=== PATIENT | female | born 1975 | race Caucasian/White ===

== ENCOUNTER 2016-11-05 16:09 | Emergency (ER) | payer MEDICAID | END 2016-11-05 17:34 | disposition home or self-care (01) | LOC: D.ER 16:09 | DX: L02.416 Cutaneous abscess of left lower limb (principal); L02.415 Cutaneous abscess of right lower limb; L02.414 Cutaneous abscess of left upper limb; L02.11 Cutaneous abscess of neck; J45.909 Unspecified asthma, uncomplicated; B19.20 Unspecified viral hepatitis C without hepatic coma; B00.9 Herpesviral infection, unspecified ==

== ENCOUNTER 2017-10-16 11:16 | Emergency (ER) | payer MEDICAID ==
[~2017-10-16] VITALS: Ht 175.3 cm; Wt 115.5 kg
[2017-10-16 11:19] VITALS: Ht 175.3 cm; Wt 115.5 kg
[2017-10-16] MEDS ORDERED: BACTRIM 400-801 TAB PO (11:20)
[2017-10-16] MEDS ORDERED: MINIPRESS 5 MG C5 MG PO (11:20)
[2017-10-16] MEDS ORDERED: LASIX40 MG PO (11:20)
[2017-10-16] MEDS ORDERED: K-DUR20 MEQ PO (11:20)
[2017-10-16] MEDS ORDERED: CLONAZEPAM2 MG/TAB PO (11:20)
[2017-10-16] MEDS ORDERED: OMEPRAZOLE20 M1 PO (11:21)
[2017-10-16 12:15] LABS: BASOPHILS 0.1 % (0-2); EOSINOPHILS 2.5 % (0-7); HEMATOCRIT 36.2 % (36.0-48.0); HEMOGLOBIN 12.1 g/dL (12-16); IMMATURE GRANULOCYTES 0.2 % (0-5); LYMPHOCYTES 27.5 % (15-50); MCH 27.4 pg (26.0-34.0); MCHC 33.4 g/dL (31.0-37.0); MCV 81.9 fL (80.0-100.0); MEAN PLATELET VOLUME 8.8 fL (7.4-10.4); MONOCYTES 7.1 % (2-11); NEUTROPHILS 62.6 % (40-80); PLATELET COUNT 163 10x3/uL (130-400); RBC 4.42 10x6/uL (4.00-5.40); RDW 13.2 % (11.5-14.5)
[2017-10-16 12:32] LABS: ALBUMIN 3.3 g/dL (3.4-5.0); ALKALINE PHOSPHATASE 132 U/L (46-116); ALT (SGPT) 65 U/L (10-68); BILIRUBIN - TOTAL 0.27 mg/dL (0.2-1.3); CALC OSMOLALITY 269 mosm/kg (275-300); CALCIUM 8.3 mg/dL (8.5-10.1); CARBON DIOXIDE 31.4 mmol/L (21.0-32.0); CHLORIDE - SERUM 102 mmol/L (98-107); GLUCOSE 104 mg/dL (74-106); POTASSIUM - SERUM 4.3 mmol/L (3.5-5.1); PROTEIN - SERUM 7.3 g/dL (6.4-8.2); SODIUM 136 mmol/L (136-145); UREA NITROGEN 6 mg/dL (7-18); eGFR NON AFRICAN AMERICAN 65 mL/min (90-120)
[2017-10-16 12:34] LABS: TROPONIN-I < 0.017 ng/mL (0.000-0.060)
[2017-10-16] MEDS ORDERED: VENTOLIN HFA18 GM INH (15:20)
[2017-10-16] MEDS ORDERED: ZITHROMAX500 MG PO (15:20)
[2017-10-16] MEDS ORDERED: AMOXICILLIN875 MG PO (15:20)
[2017-10-16] MEDS ORDERED: FLOVENT HFA 11012 GM INH (15:20)
[2017-10-16 15:30] VITALS: BP 147/84
== END 2017-10-16 15:35 | disposition home or self-care (01) ==
LOC: D.ER 11:16
PROVIDERS: Family Medicine
DX: J45.901 Unspecified asthma with (acute) exacerbation (principal); J18.9 Pneumonia, unspecified organism; I50.9 Heart failure, unspecified; J44.9 Chronic obstructive pulmonary disease, unspecified; F17.200 Nicotine dependence, unspecified, uncomplicated

== ENCOUNTER 2018-03-02 10:42 | Inpatient (IN) | payer MEDICAID ==
[~2018-03-02] VITALS: Ht 175.3 cm; Wt 116.1 kg
[~2018-03-02 10:42] MED LIST: AMOXICILLIN875 MG PO; BACTRIM 400-801 TAB PO; CLONAZEPAM2 MG/TAB PO; FLOVENT HFA 11012 GM INH; K-DUR20 MEQ PO; LASIX40 MG PO; MINIPRESS 5 MG C5 MG PO; OMEPRAZOLE20 M1 PO; VENTOLIN HFA18 GM INH; ZITHROMAX500 MG PO
[2018-03-02 11:32] LABS: BASOPHILS 0.2 % (0-2); EOSINOPHILS 2.3 % (0-7); HEMATOCRIT 38.5 % (36.0-48.0); HEMOGLOBIN 12.2 g/dL (12-16); IMMATURE GRANULOCYTES 0.3 % (0-5); MCH 24.3 pg (26.0-34.0); MCHC 31.7 g/dL (31.0-37.0); MCV 76.5 fL (80.0-100.0); MEAN PLATELET VOLUME 9.5 fL (7.4-10.4); MONOCYTES 6.1 % (2-11); NEUTROPHILS 79.1 % (40-80); RBC 5.03 10x6/uL (4.00-5.40); WBC 9.1 10x3/uL (4.8-10.8)
[2018-03-02 11:37] LABS: APTT 27.4 SECONDS (22.8-39.4); INR 1.03 (0.85-1.17)
[2018-03-02 11:43] LABS: ALBUMIN 3.2 g/dL (3.4-5.0); ALKALINE PHOSPHATASE 144 U/L (46-116); ALT (SGPT) 30 U/L (10-68); BILIRUBIN - TOTAL 0.34 mg/dL (0.2-1.3); CALC OSMOLALITY 267 mosm/kg (275-300); CALCIUM 8.4 mg/dL (8.5-10.1); CARBON DIOXIDE 26.9 mmol/L (21.0-32.0); CHLORIDE - SERUM 97 mmol/L (98-107); CREATININE - SERUM 1.1 mg/dL (0.6-1.3); GLUCOSE 133 mg/dL (74-106); SODIUM 134 mmol/L (136-145); UREA NITROGEN 7 mg/dL (7-18); eGFR NON AFRICAN AMERICAN 58 mL/min (90-120)
[2018-03-02 11:50] LABS: PLATELET COUNT 192 10x3/uL (130-400); PLATELET ESTIMATE NORMAL; PLATELET MORPHOLOGY NORMAL PLT MORPH
[2018-03-02 11:54] LABS: CKMB 0.8 U/L (0.0-3.6); CREATINE KINASE 346 UL (21-215); PRO BNP 128 pg/mL (0-125)
[2018-03-02 11:55] LABS: TROPONIN-I < 0.017 ng/mL (0.000-0.060)
[2018-03-02 12:27] VITALS: BP 158/87
[2018-03-02] MEDS ORDERED: MEDROL DOSE PACK4 MG PO (14:13)
[2018-03-02] MEDS ORDERED: ZPAK PO (14:13)
[2018-03-02] MEDS ORDERED: ALBUTEROL SULF8.5 GM INH (14:13)
--- NOTE | 2018-03-02 18:07 | NUR ---
PT RECIVIED FROM ER. NO SIGNS OF DISTRESS. IV TO RIGHT CHEST PATENT NO REDNESS OR TENDERNESS. ON 2L NC. ASKING ABOUT HOME MEDICATIONS TO HELP SLEEP TONIGHT. TOLD NOT TO TAKE HER HOME MEDICATIONS WOULD SPEAK WITH THE DR ABOUT THEM. DENIES ANY OTHER NEED AT THIS TIME. CALL LIGHT IN REACH. BED LOW POSIITON. NO FAMILY AT BEDSIDE.
[2018-03-02 18:42] VITALS: BP 171/95; BMI 37.9
[2018-03-02 20:35] VITALS: BP 145/79
--- NOTE | 2018-03-02 22:58 | NUR ---
AWAKE,ALERT.REQUESTING HOME KLONOPIN AND MINIPRESS.INFORMED PATIENT MINIPRESS HAD BEEN ORDERED. CALL PLACED TO [facility]. ORDER TO START HOME MED KLONOPIN OBTAINED. IV INFUSING TO RIGHT CHEST WITHOUT REDNESS OR EDEMA NOTED. O2 @ 2L PER NC ON. NO DISTRESS NOTED. CL IN REACH
[2018-03-03 00:46] VITALS: BP 139/67
[2018-03-03 04:57] VITALS: BP 114/66
--- NOTE | 2018-03-03 05:02 | NUR ---
EYES CLOSED RESPIRATIONS WITH EASE AND UNLABORED. SR UP X2 CALL LIGHT WITHIN REACH DENIES NEEDS.
[2018-03-03 06:21] LABS: BASOPHILS 0.1 % (0-2); EOSINOPHILS 0 % (0-7); HEMATOCRIT 38.4 % (36.0-48.0); HEMOGLOBIN 12.2 g/dL (12-16); IMMATURE GRANULOCYTES 0.6 % (0-5); LYMPHOCYTES 8.8 % (15-50); MCH 24.1 pg (26.0-34.0); MCHC 31.8 g/dL (31.0-37.0); MCV 75.9 fL (80.0-100.0); MEAN PLATELET VOLUME 9.1 fL (7.4-10.4); MONOCYTES 1.4 % (2-11); NEUTROPHILS 89.1 % (40-80); RBC 5.06 10x6/uL (4.00-5.40); RDW 15.3 % (11.5-14.5); WBC 8.7 10x3/uL (4.8-10.8)
[2018-03-03 06:42] LABS: PLATELET COUNT 236 10x3/uL (130-400)
[2018-03-03 07:00] LABS: ALBUMIN 3.3 g/dL (3.4-5.0); ANION GAP 15.3 mmol/L (8-16); BILIRUBIN - TOTAL 0.28 mg/dL (0.2-1.3); CALCIUM 8.6 mg/dL (8.5-10.1); CARBON DIOXIDE 26.4 mmol/L (21.0-32.0); CREATININE - SERUM 1.1 mg/dL (0.6-1.3); POTASSIUM - SERUM 4.7 mmol/L (3.5-5.1)
[2018-03-03 08:51] VITALS: BP 116/68
--- NOTE | 2018-03-03 12:18 | NUR ---
PT RESTING IN BED WITH EYES CLOSED. OPENS EYES SPONTANEOUSLY. NO ACUTE DISTRESS NOTED AT THIS TIME. CENTRAL LINE INTACT TO RIGHT CHEST NO REDNESS OR EDEMA NOTED. 02 @ 3L NC IN PLACE. DENIES FURTHER NEEDS AT THIS TIME. CL WITHIN REACH. CONTINUE WITH POC.
--- NOTE | 2018-03-03 12:54 | NUR ---
PT RESTING IN BED. NO SIGNS OF DISTRESS. HAS RIGHT CHEST CENTRAL LINE PATENT NO REDNESS OR TENDERNESS. ON 4.5L NC. BP DROP 98/58. DENIES ANY NEW SYMPTOMS AND IN NO SIGNS OF DISTRESS. DENIES ANY OTHER NEED AT THIS TIME. CALL LIGHT IN REACH. BED LOW POSITION. NO FAMILY AT BEDSIDE AT THIS TIME.
[2018-03-03 13:03] VITALS: BP 98/57
[2018-03-03 14:48] VITALS: Ht 175.3 cm; Wt 116.1 kg
[2018-03-03 16:30] VITALS: BP 92/47
--- NOTE | 2018-03-03 19:00 | NUR ---
REPORT RECEIVED AND CARE OF PT ASSUMED. PT LYING ON LEFT SIDE WITH EYES CLOSED. RIGHT CVL PATENT WITH NS INFUSING AT 75 ML / HR. WILL MONITOR FOR NEEDS.
[2018-03-03 20:31] VITALS: BP 108/55
--- NOTE | 2018-03-03 20:55 | NUR ---
HS MEDICATIONS GIVEN. HELD MINIPRESS BP 108/55 AT THIS ASSESSMENT. WILL RE-EVAL AT NEXT BP CHECK AT MIDNIGHT.
--- NOTE | 2018-03-03 21:00 | NUR ---
GAVE HS SNACK OF VANILLA ICE CREAM X2. WILL CONTINUE TO MONITOR FOR NEEDS.
[2018-03-04 00:54] VITALS: BP 115/67
[2018-03-04 04:41] LABS: BASOPHILS 0 % (0-2); EOSINOPHILS 0 % (0-7); HEMATOCRIT 34.5 % (36.0-48.0); HEMOGLOBIN 10.6 g/dL (12-16); IMMATURE GRANULOCYTES 0.5 % (0-5); LYMPHOCYTES 7.5 % (15-50); MCH 23.8 pg (26.0-34.0); MCHC 30.7 g/dL (31.0-37.0); MCV 77.4 fL (80.0-100.0); MEAN PLATELET VOLUME 8.8 fL (7.4-10.4); MONOCYTES 4.3 % (2-11); NEUTROPHILS 87.7 % (40-80); PLATELET COUNT 231 10x3/uL (130-400); RBC 4.46 10x6/uL (4.00-5.40); RDW 15.5 % (11.5-14.5)
[2018-03-04 04:51] LABS: WBC 17.5 10x3/uL (4.8-10.8)
[2018-03-04 04:56] LABS: ALBUMIN 2.8 g/dL (3.4-5.0); ANION GAP 9.5 mmol/L (8-16); BILIRUBIN - TOTAL 0.23 mg/dL (0.2-1.3); CALCIUM 8.1 mg/dL (8.5-10.1); CARBON DIOXIDE 30.2 mmol/L (21.0-32.0); CREATININE - SERUM 1.2 mg/dL (0.6-1.3); POTASSIUM - SERUM 4.7 mmol/L (3.5-5.1); PROTEIN - SERUM 7.2 g/dL (6.4-8.2)
[2018-03-04 05:04] VITALS: BP 117/65
--- NOTE | 2018-03-04 12:02 | MORECARE ---
CASE MANAGEMENT DISCHARGE SUMMARY PATIENT: OUMOU SHAW UNIT: [id number] ADM DATE: 03/02/18 AGE: 42 : 77 SEX: F ROOM/BED: D.2223 AUTHOR: CHINYERE MUSE PHYSICIAN: REFERRING PHYSICIAN: ANTIONETTE RODRIGUEZ DO DATE OF SERVICE: 03/04/18 Discharge Plan Patient Name: OUMOU SHAW [facility] [facility] 1975 Planned Disposition: Home Anticipated Discharge Date: Discharge Date: Expected LOS: Initial Reviewer: [email or web address] Initial Review Date: 03/04/2018 Generated: 03/04/18 1:02 pm DCPIA - Discharge Planning Initial Assessment Updated by [email or web address]: Teena Saldaña on 03/04/18 11:58 am * Is the patient Alert and Oriented? Yes * How many steps to enter\exit or inside your home? 0/0 * PCP Hilda Diaz in [place] * Pharmacy [facility] on [facility] * Preadmission Environment Home Alone * ADLs Independent * Equipment None * List name and contact numbers for known caregivers / representatives who currently or will assist patient after discharge: Torie carty - [phone] * Verbal permission to speak to the caregivers and representatives has been obtained from the patient. Yes * Community resources currently utilized None * Additional services required to return to the preadmission environment? No * Can the patient safely return to the preadmission environment? Yes * Has this patient been hospitalized within the prior 30 days at any hospital? No Patient Name: OUMOU SHAW Page 69960 at 1202 All edits/amendments must be made on the electronic document DICTATION DATE: 03/04/18 1202 ADVERTISING ASSISTANT MANAGER: CHRISTI 03/04/18 1202 RPT#: [id number] DC DATE: STATUS: ADM IN [facility] [address] [place] [address] END OF REPORT
--- NOTE | 2018-03-04 12:19 | MORECARE ---
CASE MANAGEMENT DISCHARGE SUMMARY PATIENT: OUMOU SHAW UNIT: [id number] ADM DATE: 03/02/18 AGE: 42 : 77 SEX: F ROOM/BED: D.2223 AUTHOR: MICHADOC PHYSICIAN: REFERRING PHYSICIAN: ANTIONETTE RODRIGUEZ DO DATE OF SERVICE: 03/04/18 Discharge Plan Patient Name: OUMOU SHAW Facility: [facility]:[place] : 1975 Planned Disposition: Home Anticipated Discharge Date: Discharge Date: Expected LOS: Initial Reviewer: [email or web address] Initial Review Date: 03/04/2018 Generated: 03/04/18 1:19 pm Comments DCP- Discharge Planning Updated by [email or web address]: Teena Saldaña on 03/04/18 11:[address] Patient Name: OUMOU SHAW Admission Status: ER Accout number: [id number] Admission Date: 03-02-2018 : 1975 Admission Diagnosis: Attending: ANTIONETTE RODRIGUEZ Current LOS: 2 Anticipated DC Date: Planned Disposition: Home Primary Insurance: MEDICAID [place] Discharge Planning Comments: CM met with patient to discuss discharge planning/needs, she is alone in the room. She states she lives alone. She is independent with all ADL's. States she does not drive, she takes a taxi or the bus for transportation. States she has 2 sisters that are active in her life. States she will take a taxi home when discharged and has money for the taxi and keys to get into her home. Declines need for DME or home health. She is not wearing any oxygen. CM will continue to follow and assist with discharge planning/needs. Nutrition Worker: Teena Saldaña DCPIA - Discharge Planning Initial Assessment Updated by [email or web address]: Teena Saldaña on 03/04/18 11:58 am * Is the patient Alert and Oriented? Yes * How many steps to enter\exit or inside your home? 0/0 * PCP Hilda Diaz in [place] * Pharmacy [facility] * Preadmission Environment Home Alone * ADLs Independent * Equipment None * List name and contact numbers for known caregivers / representatives who currently or will assist patient after discharge: Torie carty [phone] * Verbal permission to speak to the caregivers and representatives has been obtained from the patient. Yes * Community resources currently utilized None * Additional services required to return to the preadmission environment? No * Can the patient safely return to the preadmission environment? Yes * Has this patient been hospitalized within the prior 30 days at any hospital? No Last DP export: 03/04/18 11:02 a Patient Name: OUMOU SHAW Page 25199 at 1219 All edits/amendments must be made on the electronic document DICTATION DATE: 03/04/181217 MICROELECTRONICS ASSEMBLER: CHRISTI 03/04/181217 RPT#: [id number] DC DATE: STATUS: ADM IN [facility] [address] [place] [address] END OF REPORT
[2018-03-04] MEDS ORDERED: COREG 3.1253.125 MG PO (13:53)
[2018-03-04] MEDS ORDERED: COZAAR25 MG PO (13:53)
[2018-03-04] MEDS ORDERED: OMNICEF300 MG PO (13:55)
[2018-03-04] MEDS ORDERED: Nicoderm [PBKC] TRANSDERM (13:55)
[2018-03-04] MEDS ORDERED: PREDNISONE10 MG PO (13:55)
--- NOTE | 2018-03-04 14:19 | MORECARE ---
CASE MANAGEMENT DISCHARGE SUMMARY PATIENT: OUMOU SHAW UNIT: [id number] ADM DATE: 03/02/18 AGE: 42 : 77 SEX: F ROOM/BED: D.2223 AUTHOR: CHINYERE MUSE PHYSICIAN: REFERRING PHYSICIAN: ANTIONETTE RODRIGUEZ DO DATE OF SERVICE: 03/04/18 Discharge Plan Patient Name: OUMOU SHAW Facility: [facility]:[place] : 1975 Planned Disposition: Home Anticipated Discharge Date: Discharge Date: Expected LOS: Initial Reviewer: [email or web address] Initial Review Date: 03/04/2018 Generated: 03/04/18 3:18 pm Comments DCP- Discharge Planning Updated by [email or web address]: Teena Saldaña on 03/04/18 1:[address] Patient Name: OUMOU SHAW Encounter No: [id number] : 1975 Primary Insurance: MEDICAID [place] Anticipated DC Date: Planned Disposition: Home External Planned Provider: : DCP follow-up note: Patient in agreement with discharge plan. No changes to plan. Case management will follow and assist as needed. Teena Saldaña DCP- Discharge Planning Updated by [email or web address]: Teena Saldaña on 03/04/18 11:[address] Patient Name: OUMOU SHAW Admission Status: ER Accout number: [id number] Admission Date: 03-02-2018 : 1975 Admission Diagnosis: Attending: ANTIONETTE RODRIGUEZ Current LOS: 2 Anticipated DC Date: Planned Disposition: Home Primary Insurance: MEDICAID [place] Discharge Planning Comments: CM met with patient to discuss discharge planning/needs, she is alone in the room. She states she lives alone. She is independent with all ADL's. States she does not drive, she takes a taxi or the bus for transportation. States she has 2 sisters that are active in her life. States she will take a taxi home when discharged and has money for the taxi and keys to get into her home. Declines need for DME or home health. She is not wearing any oxygen. CM will continue to follow and assist with discharge planning/needs. Paperhanger Contractor: Teena Saldaña DCPIA - Discharge Planning Initial Assessment Updated by [email or web address]: Teenasatnam Saldaña on 03/04/18 11:58 am * Is the patient Alert and Oriented? Yes * How many steps to enter\exit or inside your home? 0/0 * PCP Hilda Diaz in [place] * Pharmacy [facility] * Preadmission Environment Home Alone * ADLs Independent * Equipment None * List name and contact numbers for known caregivers / representatives who currently or will assist patient after discharge: Torie carty [phone] * Verbal permission to speak to the caregivers and representatives has been obtained from the patient. Yes * Community resources currently utilized None * Additional services required to return to the preadmission environment? No * Can the patient safely return to the preadmission environment? Yes * Has this patient been hospitalized within the prior 30 days at any hospital? No Last DP export: 03/04/18 11:19 a Patient Name: OUMOU SHAW Page 49995 at 1419 All edits/amendments must be made on the electronic document DICTATION DATE: 03/04/181417 DIRECTOR OF CAPITAL GIVING: CHRISTI 03/04/181417 RPT#: [id number] DC DATE: STATUS: ADM IN [facility] [address] [place] [address] END OF REPORT
--- NOTE | 2018-03-04 14:39 | MORECARE ---
CASE MANAGEMENT DISCHARGE SUMMARY PATIENT: OUMOU SHAW UNIT: [id number] ADM DATE: 03/02/18 AGE: 42 : 77 SEX: F ROOM/BED: D.2223 AUTHOR: CHINYERE MUSE PHYSICIAN: REFERRING PHYSICIAN: ANTIONETTE RODRIGUEZ DO DATE OF SERVICE: 03/04/18 Discharge Plan Patient Name: OUMOU SHAW Facility: [facility]:[place] : 1975 Planned Disposition: Home Anticipated Discharge Date: Discharge Date: Expected LOS: Initial Reviewer: [email or web address] Initial Review Date: 03/04/2018 Generated: 03/04/18 3:39 pm Comments DCP- Discharge Planning Updated by [email or web address]: Teena Piper on 03/04/18 1:[address] Noted discharge order for drug and etoh cessation counceling. I gave her a hand out on alcohol use and your health and a list of local Alcohol and drug abuse rehabs and helpline and treatment number. DCP- Discharge Planning Updated by [email or web address]: Teena Saldaña on 03/04/18 1:[address] Patient Name: OUMOU SHAW Encounter No: [id number] : 1975 Primary Insurance: MEDICAID [place] Anticipated DC Date: Planned Disposition: Home External Planned Provider: : DCP follow-up note: Patient in agreement with discharge plan. No changes to plan. Case management will follow and assist as needed. Teena Piper DCP- Discharge Planning Updated by [email or web address]: Teena Saldaña on 03/04/18 11:[address] Patient Name: OUMOU SHAW Admission Status: ER Accout number: [id number] Admission Date: 03-02-2018 : 1975 Admission Diagnosis: Attending: ANTIONETTE RODRIGUEZ Current LOS: 2 Anticipated DC Date: Planned Disposition: Home Primary Insurance: MEDICAID [place] Discharge Planning Comments: CM met with patient to discuss discharge planning/needs, she is alone in the room. She states she lives alone. She is independent with all ADL's. States she does not drive, she takes a taxi or the bus for transportation. States she has 2 sisters that are active in her life. States she will take a taxi home when discharged and has money for the taxi and keys to get into her home. Declines need for DME or home health. She is not wearing any oxygen. CM will continue to follow and assist with discharge planning/needs. Tumbler Plater: Teena Saldaña DCPIA - Discharge Planning Initial Assessment Updated by [email or web address]: Teena Saldaña on 03/04/18 11:58 am * Is the patient Alert and Oriented? Yes * How many steps to enter\exit or inside your home? 0/0 * PCP Hilda Diaz in [place] * Pharmacy [facility] on [facility] * Preadmission Environment Home Alone * ADLs Independent * Equipment None * List name and contact numbers for known caregivers / representatives who currently or will assist patient after discharge: Torie carty - [phone] * Verbal permission to speak to the caregivers and representatives has been obtained from the patient. Yes * Community resources currently utilized None * Additional services required to return to the preadmission environment? No * Can the patient safely return to the preadmission environment? Yes * Has this patient been hospitalized within the prior 30 days at any hospital? No Last DP export: 03/04/18 1:18 p Patient Name: OUMOU SHAW Page 92832 at 1439 All edits/amendments must be made on the electronic document DICTATION DATE: 03/04/181437 MEDICAL ASSISTANT: CHRISTI 03/04/181437 RPT#: [id number] DC DATE: STATUS: ADM IN [facility] [address] [place] [address] END OF REPORT
--- NOTE | 2018-03-04 14:42 | NUR ---
LEFT CHEST CENTRAL LINE REMOVED USING STERILE TECHNIQUE, NO BLEEDING NOTED AT SITE. COVERED WITH OCCLUSIVE DRESSING, INSTRUCTED PATIENT TO LEAVE DRESSING IN PLACE FOR 24 HOURS. DISCHARGE INSTRUCTIONS GIVEN WITH PATIENT VOICING UNDERSTANDING. FLU VACCINE GIVEN IM TO LEFT DELTOID, PATIENT TOLERATED WELL. AMBULATED WITH PATIENT TO FRONT ENTRANCE WITH CAB TO PICK PATIENT UP
--- NOTE | 2018-03-09 07:03 | MORECARE ---
CASE MANAGEMENT DISCHARGE SUMMARY PATIENT: OUMOU SHAW UNIT: [id number] ADM DATE: 03/02/18 AGE: 42 : [birth year] SEX: F ROOM/BED: D.2223 AUTHOR: CHINYERE MUSE PHYSICIAN: REFERRING PHYSICIAN: ANTIONETTE RODRIGUEZ DO DATE OF SERVICE: 03/09/18 Discharge Plan Patient Name: OUMOU SHAW Facility: [facility]:[place] : 1975 Planned Disposition: Home Anticipated Discharge Date: Discharge Date: 03/04/2018 Expected LOS: 0 Initial Reviewer: [email or web address] Initial Review Date: 03/04/2018 Generated: 03/09/18 8:03 am Comments DCP- Discharge Planning Updated by [email or web address]: Teena Saldaña on 03/04/18 1:[address] Noted discharge order for drug and etoh cessation counceling. I gave her a hand out on alcohol use and your health and a list of local Alcohol and drug abuse rehabs and helpline and treatment number. DCP- Discharge Planning Updated by [email or web address]: Teenasatnam Saldaña on 03/04/18 1:[address] Patient Name: OUMOU SHAW Encounter No: [id number] : 1975 Primary Insurance: MEDICAID [place] Anticipated DC Date: Planned Disposition: Home External Planned Provider: : DCP follow-up note: Patient in agreement with discharge plan. No changes to plan. Case management will follow and assist as needed. Teena Piper DCP- Discharge Planning Updated by [id number]: Teena Vasquezjackie on 03/04/18 11:[address] Patient Name: OUMOU SHAW Admission Status: ER Accout number: [id number] Admission Date: 03-02-2018 : 1975 Admission Diagnosis: Attending: ANTIONETTE RODRIGUEZ Current LOS: 2 Anticipated DC Date: Planned Disposition: Home Primary Insurance: MEDICAID [place] Discharge Planning Comments: CM met with patient to discuss discharge planning/needs, she is alone in the room. She states she lives alone. She is independent with all ADL's. States she does not drive, she takes a taxi or the bus for transportation. States she has 2 sisters that are active in her life. States she will take a taxi home when discharged and has money for the taxi and keys to get into her home. Declines need for DME or home health. She is not wearing any oxygen. CM will continue to follow and assist with discharge planning/needs. Sprinkler Worker: Teena Saldaña DCPIA - Discharge Planning Initial Assessment Updated by [email or web address]: Teean Saldaña on 03/04/18 11:58 am * Is the patient Alert and Oriented? Yes * How many steps to enter\exit or inside your home? 0/0 * PCP Hilda Diaz in [place] * Pharmacy [facility] * Preadmission Environment Home Alone * ADLs Independent * Equipment None * List name and contact numbers for known caregivers / representatives who currently or will assist patient after discharge: Torie carty - [phone] * Verbal permission to speak to the caregivers and representatives has been obtained from the patient. Yes * Community resources currently utilized None * Additional services required to return to the preadmission environment? No * Can the patient safely return to the preadmission environment? Yes * Has this patient been hospitalized within the prior 30 days at any hospital? No Last DP export: 03/04/18 1:39 p Patient Name: OUMOU SHAW Page 06519 at 0703 All edits/amendments must be made on the electronic document DICTATION DATE: 03/09/18702 DIRECTOR OF GUIDANCE IN [employer]: CHRISTI 03/09/18702 RPT#: [id number] DC DATE:03/04/18 STATUS: DIS IN [place] [id number] [place] [address] END OF REPORT
== END 2018-03-04 14:48 | disposition home or self-care (01) | DRG 291 ==
LOC: D.ER 10:42 → D.EDHOLD 16:18 → D.MS 16:18
PROVIDERS: Family Medicine; ADMIT Family Medicine
PROC: 05H533Z Insertion of Infusion Device into Right Subclavian Vein, Percutaneous Approach (ICD-10-PCS; principal; 2018-03-02)
DX: I50.9 Heart failure, unspecified (principal); J96.01 Acute respiratory failure with hypoxia; J18.9 Pneumonia, unspecified organism; J44.0 Chronic obstructive pulmonary disease with (acute) lower respiratory infection; J44.1 Chronic obstructive pulmonary disease with (acute) exacerbation; B19.20 Unspecified viral hepatitis C without hepatic coma; E66.9 Obesity, unspecified; Z68.37 Body mass index [BMI] 37.0-37.9, adult